=== PATIENT | female | born 1955 | race Caucasian/White ===

== ENCOUNTER 2021-09-13 05:40 | Day surgery (SDC) | payer BC ==
[2021-09-11 14:12] VITALS: BMI 41.5
[2021-09-13] MEDS ORDERED: Lidocaine 1% MPF 2 ML VIAL ONE (06:42)
[2021-09-13] MEDS ORDERED: Neomycin-Polymyxin 1 ML AMP ONE (06:57)
[2021-09-13] MEDS ORDERED: Midazolam HCl 2 mg/2 ml Vial ONE (07:05)
[2021-09-13] MEDS ORDERED: Fentanyl 100 MCG/2 ML VIAL ONE (07:05)
[2021-09-13] MEDS ORDERED: Lidocaine 1% PF 5 ML VIAL ONE ×2 (07:06→07:44)
[2021-09-13] MEDS ORDERED: Bupivacaine PF 0.5% 30 ML VIAL ONE (07:06)
[2021-09-13] MEDS ORDERED: Famotidine/PF 20 mg/2ml Vial ONE (07:06)
[2021-09-13] MEDS ORDERED: ceFAZolin 2 GM/Dextrose 50 ML IVPB ONE (07:30)
[2021-09-13] MEDS ORDERED: PROPOFOL 20 ML ONE (07:34)
[2021-09-13] MEDS ORDERED: Dexamethasone 4 mg/ml Vial ONE (08:25)
[2021-09-13] MEDS ORDERED: Ondansetron PF 4 MG/2 ML Vial ONE (08:25)
[2021-09-13] MEDS ORDERED: Ketorolac Tromethamine 30 MG/ML VIAL ONE (08:25)
== END 2021-09-13 10:25 | disposition home or self-care (01) ==
LOC: CSHSDC 05:40
PROVIDERS: ATTEND Orthopaedic Surgery
PROC: 0PSJ04Z Reposition Left Radius with Internal Fixation Device, Open Approach (ICD-10-PCS; principal; 2021-09-13)
DX: S52.352A Displaced comminuted fracture of shaft of radius, left arm, initial encounter for closed fracture (principal); Z79.899 Other long term (current) drug therapy; I25.10 Atherosclerotic heart disease of native coronary artery without angina pectoris; Z79.82 Long term (current) use of aspirin; Z95.5 Presence of coronary angioplasty implant and graft; W19.XXXA Unspecified fall, initial encounter
CPT/HCPCS: C1713; C1776; J0690; J1100; J1885; J2250; J2405; J2704; J3010; S0020; S0028